=== PATIENT | female | born 1960 | race African-American/Black ===

== ENCOUNTER → 2016-08-15 | Outpatient (CLI) | payer BC ==
[2015-09-03 20:40] VITALS: BP 153/87
[~2016-08-15] MED LIST: AMLO5TAB2 PO; LISI40TA PO; OXYC-323 PO
--- NOTE | 2016-08-15 16:06 | KCIC ---
PROCEDURE Bone density. HISTORY Menopausal, osteoporosis. COMPARISON None. FINDINGS Dual photon densitometry of the lumbar spine and left proximal femur is performed. Bone mineral density values are measured in grams per cm2. Lumbar spine, L1-L4, total bone mineral density 1.160, T-score 1.0, Z-score 1.3. Left total femur bone mineral density 1.051, T-score 0.9, Z-score 0.7. World Health Organization criteria for bone mineral density interpretation classify patient's as normal (T-score at or above -1.0), osteopenic (T-score between -1 and -2.5), or osteoporotic (T-score at or below -2.5). IMPRESSION Normal bone mineral density of the lumbar spine and the left femur. Electronically signed by: Peter Pelayo MD (Aug 15, 2016 16:06:15)
== END | disposition home or self-care (01) ==
LOC: KCIC DEXA 15:29
PROVIDERS: ATTEND Physician Assistant Surgical
DX: Z13.820 Encounter for screening for osteoporosis (principal); Z78.0 Asymptomatic menopausal state
CPT/HCPCS: 77080

== ENCOUNTER → 2017-07-06 | Outpatient (CLI) | payer BC | END | disposition home or self-care (01) | LOC: KCIC MRI 16:01 | DX: S46.911A Strain of unspecified muscle, fascia and tendon at shoulder and upper arm level, right arm, initial encounter (principal); X58.XXXA Exposure to other specified factors, initial encounter; Y93.89 Activity, other specified; Y92.89 Other specified places as the place of occurrence of the external cause; Y99.8 Other external cause status | CPT/HCPCS: 73221 ==